=== PATIENT | female | born 1975 | race Caucasian/White ===

== ENCOUNTER 2018-04-16 11:05 | Emergency (ER) | payer BC ==
--- NOTE | 2018-04-16 11:21 | UC ---
Respiratory Complaint HPI - HPI Summary HPI Summary: 43 yo female presents with sinus pain/pressure/congestion, dry cough, and increased wheezing for the last 5 days. She tells me that she has asthma and she feels like it is "flaring" with this recent illness. She has inhalers at home that improve her cough and wheezing and has been using these more often over the last few days. Has been taking mucinex OTC with mild relief of congestion. Denies fever, chills, SOB, chest pain - History of Current Complaint Chief Complaint: UCGeneralIllness Stated Complaint: HEAD CONGESTION COUGH ASTHMA Time Seen by Provider: 04/16/18 11:21 Hx Obtained From: Patient Hx Last Menstrual Period: 04/07 Onset/Duration: Gradual Onset Severity Currently: None Pain Intensity: 0 Character: Cough: Nonproductive Alleviating Factors: Bronchodilator - Allergies/Home Medications Allergies/Adverse Reactions: Allergies Allergy/AdvReac Type Severity Reaction Status Date / Time Sulfa (Sulfonamide Allergy See Comment Verified 04/16/18 11:21 Antibiotics) Home Medications: Home Medications Fluticasone NASAL SPRAY 50MCG* [Flonase NASAL SPRAY 50MCG*] 2 spray ALT NARE DAILY 04/16/18 [History Confirmed 04/16/18] Montelukast Sodium TAB* [Singulair 5 mg TAB*] 1 tab PO DAILY 04/16/18 [History Confirmed 04/16/18] guaiFENesin [Mucinex] 1 tab PO DAILY 04/16/18 [History Confirmed 04/16/18] PMH/Surg Hx/FS Hx/Imm Hx Respiratory History: Asthma - Surgical History Surgical History: Yes Surgery Procedure, Year, and Place: left knee (99) - Family History Known Family History: Positive: Respiratory Disease - Social History Occupation: Employed Full-time Lives: With Family Alcohol Use: Occasionally Substance Use Type: None Smoking Status (MU): Never Smoked Tobacco - Immunization History Most Recent Tetanus Shot: UTD Review of Systems Constitutional: Negative Skin: Negative Eyes: Negative ENT: Nasal Discharge, Sinus Congestion, Sinus Pain/Tenderness Respiratory: Cough Cardiovascular: Negative Gastrointestinal: Negative Neurovascular: Negative Neurological: Negative Psychological: Negative All Other Systems Reviewed And Are Negative: Yes Physical Exam - Summary Physical Exam Summary: GENERAL: NAD. WDWN. No pain distress. SKIN: No rashes, sores, lesions, or open wounds. HEENT: Head: AT/NC Eyes: Conjunctiva clear without inflammation or discharge. Ears: Hearing grossly normal. TMs intact, no bulging, erythema, or edema. Nose: Nasal mucosa mildly swollen and erythematous with yellow discharge. TTP maxillary and frontal sinus. Throat: Posterior oropharynx without exudates, erythema, or tonsillar enlargement. Uvula midline. NECK: Supple. Nontender. No lymphadenopathy. CHEST: Mild wheezing Right>Left. No r/r. No accessory muscle use. Breathing comfortably and in no distress. CV: RRR. Without m/r/g. Pulses intact. Brisk cap refill. NEURO: Alert. CN II-XII grossly intact. PSYCH: Age appropriate behavior. Triage Information Reviewed: Yes Vital Signs: Initial Vital Signs Temp 99.3 F 04/16/18 11:17 Pulse 96 04/16/18 11:17 Resp 18 04/16/18 11:17 BP 137/77 04/16/18 11:17 Pulse Ox 99 04/16/18 11:17 UC Diagnostic Evaluation - Laboratory O2 Sat by Pulse Oximetry: 99 Respiratory Course/Dx - Course Course Of Treatment: Sinusitis. Asthma exacerbation. Declined nebulizer treatment today and wishes to continue using her at home inhalers. - Differential Dx/Diagnosis Provider Diagnoses: Sinusitis. Asthma exacerbation Discharge - Sign-Out/Discharge Documenting (check all that apply): Discharge/Admit/Transfer - Discharge Plan Condition: Stable Disposition: HOME Prescriptions: Amoxicillin PO (*) [Amoxicillin 875 MG (*)] 875 mg PO BID #14 tab Patient Education Materials: Sinusitis (ED) Referrals: No Primary Care Phys,NOPCP [Primary Care Provider] - Additional Instructions: If you develop a fever, shortness of breath, chest pain, new or worsening symptoms - please call your PCP or go to the ED. Your blood pressure was mildly elevated at todays visit. Please see your primary provider within 4 weeks for recheck and re-evaluation. 1) Continue to use your at home inhaler as needed for wheezing - Billing Disposition and Condition Condition: STABLE Disposition: Home
== END 2018-04-16 11:41 | disposition home or self-care (01) ==
LOC: UCEAST 11:05
DX: J32.9 Chronic sinusitis, unspecified (principal); J45.901 Unspecified asthma with (acute) exacerbation; Z88.2 Allergy status to sulfonamides
CPT/HCPCS: 99202; G0463